=== PATIENT | male | born 1985 | race Caucasian/White ===

== ENCOUNTER 2019-10-05 21:18 | Emergency (ER) | payer SELFPAY ==
[2019-10-05 22:04] VITALS: BP 131/71
--- NOTE | 2019-10-05 22:59 | ER Document Report ---
ED Medical Screen (RME) - General Chief Complaint: Foot Pain Stated Complaint: FOOT PAIN Time Seen by Provider: 10/05/19 22:55 Mode of Arrival: Ambulatory Information source: Patient Notes: 34-year-old male with history of gout presents emergency department with complaints of right foot pain. Reports it started hurting this morning. He was on his feet all day at work. Increased pain tonight. He did take some ibuprofen at 1800 without relief of symptoms. He reports he does not take anything on a regular basis for gout. He reports gout runs in his family. He denies eating or drinking anything that irritated the gout. I have greeted and performed a rapid initial assessment of this patient. A comprehensive ED assessment and evaluation of the patient, analysis of test results and completion of the medical decision making process will be conducted by additional ED providers TRAVEL OUTSIDE OF THE [place] IN LAST 30 DAYS: No - Related Data Allergies/Adverse Reactions: No Known Allergies Allergy (Verified 10/05/19 22:57) Past Medical History - Social History Chew tobacco use (# tins/day): No Frequency of alcohol use: None Drug Abuse: None Physical Exam - Vital signs Vitals: Temp Pulse Resp BP Pulse Ox 98.2 F 72 20 131/71 H 98 10/05/19 22:02 10/05/19 22:02 10/05/19 22:02 10/05/19 22:02 10/05/19 22:02 Course - Vital Signs Vital signs: Temp Pulse Resp BP Pulse Ox 98.2 F 72 20 131/71 H 98 10/05/19 22:02 10/05/19 22:02 10/05/19 22:02 10/05/19 22:02 10/05/19 22:02
[2019-10-05 23:33] LABS: ABSOLUTE BASOPHILS # (AUTO) 0.1 10^3/uL (0.0-0.2); ABSOLUTE EOSINOPHILS # (AUTO) 0.5 10^3/uL (0.0-0.6); ABSOLUTE LYMPHOCYTES (AUTO) 2.5 10^3/uL (0.5-4.7); ABSOLUTE MONOCYTES (AUTO) 0.8 10^3/uL (0.1-1.4); ABSOLUTE NEUT (AUTO) 5.3 10^3/uL (1.7-8.2); EOSINOPHILS % (AUTO) 5.7 % (0-6); HEMATOCRIT 43.8 % (37.9-51.0); HEMOGLOBIN 14.9 g/dL (13.5-17.0); LYMPHOCYTES % (AUTO) 27.2 % (13-45); MEAN CORPUSCULAR HEMOGLOBIN 28.6 pg (27.0-33.4); MEAN CORPUSCULAR HGB CONC 33.9 g/dL (32.0-36.0); MEAN CORPUSCULAR VOLUME 84 fl (80-97); MONOCYTES % (AUTO) 8.6 % (3-13); PLATELET COUNT 208 10^3/uL (150-450); RED CELL DISTRIBUTION WIDTH 12.9 % (11.5-14.0); SEGMENTED NEUTROPHILS % (AUTO) 57.5 % (42-78); TOTAL CELLS COUNTED % (AUTO) 100 %; WHITE BLOOD COUNT 9.2 10^3/uL (4.0-10.5)
--- NOTE | 2019-10-05 23:49 | RADIOLOGY REPORT (SQ) ---
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 COMPARISON: None available HISTORY: 34-year old patient with right foot pain. FINDINGS: The visualized soft tissues appear unremarkable. There are no acute osseous abnormalities to suggest a fracture or subluxation within the right foot. IMPRESSION: No acute osseous abnormality is seen within the right foot.
[2019-10-06 00:01] LABS: ALBUMIN 3.8 g/dL (3.5-5.0); ALKALINE PHOSPHATASE 78 U/L (38-126); ANION GAP 6 (5-19); ASPARTATE AMINO TRANSFERASE 40 U/L (17-59); BILIRUBIN,DIRECT 0.2 mg/dL (0.0-0.4); BILIRUBIN,TOTAL 0.4 mg/dL (0.2-1.3); BLOOD UREA NITROGEN 19 mg/dL (7-20); CALCIUM 9.3 mg/dL (8.4-10.2); CARBON DIOXIDE 32 mmol/L (22-30); CHLORIDE 103 mmol/L (98-107); GLUCOSE 94 mg/dL (75-110); POTASSIUM 4.1 mmol/L (3.6-5.0); TOTAL PROTEIN 6.7 g/dL (6.3-8.2)
== END 2019-10-06 04:57 | disposition left against medical advice (07) ==
LOC: ER 21:18
DX: M79.671 Pain in right foot (principal)
CPT/HCPCS: 36415; 80053; 85025; 99281